=== PATIENT | female | born 1930 | race Caucasian/White ===

== ENCOUNTER 2016-04-01 14:51 | Inpatient (IN) | payer OTHER, BC ==
[2016-04-01] MEDS ORDERED: ONDANSETRON 4 MG/2 ML VIAL IVP PRN (17:03)
[2016-04-01] MEDS ORDERED: ONDANSETRON DISINTEGRATING 4 MG TAB PO PRN (17:03)
[2016-04-01] MEDS ORDERED: ACETAMINOPHEN 325 MG TAB PO PRN (17:03)
--- NOTE | 2016-04-01 17:49 | GHP ---
[f rep st] HISTORY AND PHYSICAL DATE OF ADMISSION: 04/01/2016 HISTORY OF PRESENT ILLNESS: The patient is an 85-year-old female with a history of remote pulmonary embolism, hypertension and functional debility, saw her primary care physician for a regularly schedu le appointment where she noted 2 weeks of shortness of breath. It sounds like at baseline, the patie nt is wheelchair bound but is able to stand and do some ADLs. She denies cough, sputum, fever, chill s, chest pain, PND, orthopnea or lower extremity edema. She does have pretty significant thoracic ca ge abnormality with significant kyphosis. Her last serum bicarb 6 months ago was 28. She has never been a smoker. She had a pulmonary embolism about 7 years ago and remains on anticoagulation. Her l ast INR was 2.8 on the 6th of this month. REVIEW OF SYSTEMS: Complete 10-point review of systems conducted, negative except as noted in the HP I. PAST MEDICAL HISTORY: 1. Glucose intolerance with a hemoglobin A1c of 6.6 in August of 2015. 2. Pulmonary embolism with fairly significant clot burden in 2008, remains on anticoagulation. 3. History of acute coronary syndrome in the setting pulmonary embolism without angiogram. 4. Pulmonary embolism status post lytics. 5. Hypertension. 6. Hypothyroidism. SOCIAL HISTORY: She lives in [place] in senior housing. Her provides a lot of her care. Nonsmoker, minimal alcohol. FAMILY HISTORY: Parents . PHYSICAL EXAM: VITAL SIGNS: Presents with temp 36.8, blood pressure 114/48, pulse 61, breathing 20 times a minute, 98 on 2 L. GENERAL: No acute distress. HEENT: Sclerae anicteric. Oropharynx yani r. Mucous membranes moist. NECK: Supple. No lymphadenopathy or JVD. LUNGS: Shows crackles at th e left base. She has significant pectus carinatum and kyphosis. There is no wheeze. There is moder ate air movement. HEART: S1, S2 without systolic murmur. ABDOMEN: Soft, nontender, nondistended. LOWER EXTREMITIES: No edema. Calves nontender. SKIN: Without rash. NEUROLOGIC: Nonfocal. LABS: None. IMAGING: None. ASSESSMENT/PLAN: An 85-year-old female with pretty significant debility presents with shortness of b reath. 1. Shortness of breath. Differential includes pneumonia, acute coronary syndrome, recurrent pulmona ry embolism versus progressive restrictive lung disease from her thoracic cage. I have ordered a na st x-ray, EKG, troponin and INR. If her INR is therapeutic we will not workup for pulmonary embolism . I suspect she may have a pneumonia based on her presentation. I have also ordered a CBC. 2. Pulmonary embolism. 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 3. History of diabetes. She is on metformin. We will hold this during her hospitalization. We isa l follow her blood sugars. 4. Functional status. Physical therapy, occupational therapy and speech language will see her. 5. Prophylaxis. Pharmacologic prophylaxis indicated. Await her INR before decisions for that. 6. Dyspnea. Addendum, differential also includes anemia given the patient's anticoagulation await t he CBC. 7. Hypoxia. This is mild, likely secondary to hypoventilation from her thoracic cage abnormality. Will follow. 8. Disposition. Inpatient status. /[id number]/MODL
--- NOTE | 2016-04-01 17:50 | CPEKG ---
Heart Rate: 57 RR Interval: 1053 P-R Interval: 136 QRSD Interval: 102 QT Interval: 456 QTC Interval: 444 P Blair: 45 QRS Blair: -1 T Wave Blair: -20 EKG Severity - NORMAL ECG - EKG Impression: SINUS RHYTHM Electronically Signed By: Amando Castro 02-Apr-2016 19:24:29
--- NOTE | 2016-04-01 18:22 | DX ---
PA and lateral chest. April 01, 2016. Clinical History: Dyspnea. Comparison Study: None available. Findings: Elevated left hemidiaphragm. Atelectasis or scar right lower lobe. Cardiac silhouette is no rmal. No acute pneumonia or pleural effusion.. Impression: No acute cardiopulmonary process. Markedly elevated left hemidiaphragm..
[2016-04-01 18:38] LABS: % IMMATURE GRANULYOCYTES 0.2 % (0.0-1.1); ABSOLUTE IMMATURE GRANULOCYTES 0.01 10^3/uL (0.00-0.10); ADD DIFF? NO; ADD MORPH? NO; ADD SCAN? NO; ATYPICAL LYMPHOCYTE FLAG 20 (0-99); FRAGMENT RBC FLAG 40 (0-99); HEMATOCRIT 28.2 % (38.0-47.0); HEMOGLOBIN 8.3 g/dL (12.6-16.3); LEFT SHIFT FLG 0 (0-99); LIPEMIA HEMOLYSIS FLAG 70 (0-99); MEAN CELL HEMOGLOBIN 23.4 pg (27.9-34.1); MEAN CELL HEMOGLOBIN CONCENTR. 29.4 g/dL (32.4-36.7); MEAN CELL VOLUME 79.7 fL (81.5-99.8); MEAN PLATELET VOLUME 10.7 fL (8.7-11.7); PLATELET CLUMPS FLAG 0 (0-99); PLATELET COUNT 328 10^3/uL (150-400); RED BLOOD CELL COUNT 3.54 10^6/uL (4.18-5.33); RED CELL DISTRIBUTION WIDTH 19.6 % (11.5-15.2)
[2016-04-01 18:51] LABS: INR 1.96 (0.83-1.16); PROTIME(PATIENT) 22.4 SEC (12.0-15.0)
[2016-04-01 19:03] LABS: ANION GAP 7 mEq/L (8-16); CALCIUM 8.3 mg/dL (8.5-10.4); CARBON DIOXIDE 27 mEq/l (22-31); CHLORIDE 107 mEq/L (97-110); CREATININE 0.5 mg/dL (0.6-1.0); GLOMERULAR FILTRATION RATE > 60; GLUCOSE 90 mg/dL (70-100); POTASSIUM 4.4 mEq/L (3.5-5.2); SODIUM 141 mEq/L (134-144)
[2016-04-01 19:15] LABS: TROPONIN I < 0.012 ng/mL (0-0.034)
[2016-04-01] MEDS: WARFARIN SODIUM 2.5 MG TAB PO SCH (20:20)
[2016-04-01] MEDS: POLYETHYLENE GLYCOL 3350 17 GM PKT PO SCH (20:20)
[2016-04-02 05:34] LABS: % IMMATURE GRANULYOCYTES 0.2 % (0.0-1.1); ABSOLUTE IMMATURE GRANULOCYTES 0.01 10^3/uL (0.00-0.10); ADD DIFF? NO; ADD MORPH? YES; ADD SCAN? NO; ATYPICAL LYMPHOCYTE FLAG 20 (0-99); FRAGMENT RBC FLAG 40 (0-99); HEMATOCRIT 25.5 % (38.0-47.0); HEMOGLOBIN 7.8 g/dL (12.6-16.3); LEFT SHIFT FLG 0 (0-99); LIPEMIA HEMOLYSIS FLAG 80 (0-99); MEAN CELL HEMOGLOBIN 25.3 pg (27.9-34.1); MEAN CELL HEMOGLOBIN CONCENTR. 30.6 g/dL (32.4-36.7); MEAN CELL VOLUME 82.8 fL (81.5-99.8); MEAN PLATELET VOLUME 10.9 fL (8.7-11.7); PLATELET CLUMPS FLAG 0 (0-99); PLATELET COUNT 292 10^3/uL (150-400); RED BLOOD CELL COUNT 3.08 10^6/uL (4.18-5.33)
[2016-04-02 05:37] LABS: RED CELL DISTRIBUTION WIDTH 21.4 % (11.5-15.2)
[2016-04-02 05:51] LABS: INR 1.99 (0.83-1.16); PROTIME(PATIENT) 22.7 SEC (12.0-15.0)
[2016-04-02 05:58] LABS: HYPOCHROMIA 1+; MICROCYTES 1+; PLATELET ESTIMATE ADEQUATE (ADEQ)
[2016-04-02] MEDS: LEVOTHYROXINE 75 MCG TAB PO SCH (07:13)
[2016-04-02] MEDS: MULTIVITAMINS 1 EACH TAB PO SCH ×2 (09:31→12:11)
[2016-04-02] MEDS: POLYETHYLENE GLYCOL 3350 17 GM PKT PO SCH (09:31)
[2016-04-02] MEDS: ATENOLOL 25 MG TAB PO SCH (09:32)
[2016-04-02] MEDS: CYANO/VITAMIN B12 1000 MCG TAB PO SCH (09:32)
[2016-04-02] MEDS: ASPIRIN EC 81 MG TAB PO SCH (09:32)
[2016-04-02] MEDS: GLUCOSAMINE/CHONDROITIN CAP PO SCH ×2 (09:32→21:03)
[2016-04-02] MEDS: CHOLECALCIFEROL VIT D3 1,000 UNITS TAB PO SCH (09:32)
[2016-04-02] MEDS: CALCIUM CARB W/VIT D 500 MG TAB PO SCH ×2 (09:33→12:10)
--- NOTE | 2016-04-02 16:34 | HOSPPROG ---
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 CXR personally reviewed w/o infiltrate or effusion. Does have significant kyphosis and likely restrictive lung disease as a result. Hx of PE and INR slightly subtherapeutic on arrival, will get CTA to r/o PE # hx of PE: hx of massive PE requiring TPA and plan at that point was for lifelong AC, she has not had issues with bleeding or falls, will continue AC and await cta. INR slightly low, will bridge with lovenox if PE present # hx of CVA with residual right sided weakness: patient reports that the weakness is a bit worse recently, however at baseline she is essentially wheelchair bound. PT/OT involved. Does not sound as if there is any clear new neurologic sxs, continued right sided weakness only, will hold off on imaging # acute on chronic anemia: with baseline hct of 30 and today decreased to 25, no e/o bleeding, will monitor # DM: patient reports being due for A1c, will order for am, last A1c was 6.6 # htn: continue atenolol # dispo: IP status, will need > 48 hours stay given multiple active comorbid conditions # patient new to my care. Old records reviewed and summarized as above. Care plan reviewed with CM> Subjective: no significant overnight evetns, patient continues to feel sob if oxygen is off, she also feels more weak than usual mostly on the right side which is where her usual weakness is Objective: Vital Signs Temp Pulse Resp BP Pulse Ox 36.8 C 62 18 102/52 L 94 04/02/16 16:16 04/02/16 16:16 04/02/16 16:16 04/02/16 16:16 04/02/16 16:16 Laboratory Results 04/02/16 03:41 04/01/16 18:30 04/01/16 04/02/16 04/03/16 05:59 05:59 05:59 Intake Total 500 Balance 500 PT 22.7 SEC (12.0-15.0) H 04/02/16 03:41 INR 1.99 (0.83-1.16) H 04/02/16 03:41 awake alert anicteric op clear rrr systolic murmur dec bs throughout soft nt nd no cce warm dry well perfused oriented appropriate right upper and lower extremity weakness - Time Spent With Patient Time Spent with Patient: greater than 35 minutes Time Spent with Patient: Greater than 35 minutes spent on this patients care, greater than 50% of time spent counseling, educating, and coordinating care regarding the above mentioned plan. ICD10 Worksheet Patient Problems: Problems Problem Status Diagnosed Pulmonary embolism Acute
[2016-04-02 16:40] LABS: COLOR YELLOW; LEUKOCYTE ESTERASE,URINE 1+ (NEGATIVE); NITRITE,URINE NEGATIVE (NEGATIVE)
[2016-04-02 17:28] LABS: BACTERIA TRACE /hpf (NONE SEEN); MUCUS TRACE /lpf (NONE-1+)
[2016-04-02] MEDS ORDERED: IOPAMIDOL (ISOVUE 370) 100 ML BTL IV ONE (17:28)
[2016-04-02] MEDS ORDERED: WARFARIN SODIUM 5 MG TAB PO SCH (19:05)
--- NOTE | 2016-04-02 20:12 | CT ---
CT Pulmonary Angiogram Clinical Indications: Shortness of breath and hypoxia in an 85 year old with a remote history of pu lmonary embolic disease documented on CT pulmonary angiography of December 03, 2008. Technique: Thinly collimated multidetector helical CT imaging was performed through the chest while 85 mL of Isovue-370 were injected intravenously without complication. The images were obtained at 4- mm thickness and reconstructed at 1.5-mm thickness. Sagittal and coronal reconstructions were perfor med. The examination is reviewed on the workstation by the interpreting physician at multiple window /level settings. Dose reduction techniques were utilized. Findings Chest: There is marked elevation of the left hemidiaphragm. Bilateral pleural effusions are noted, larger on the left side. There is bilateral lower lung opacity, atelectasis versus less likely pneum onia. Scoliosis and spinal degenerative changes are noted. The heart is enlarged. The upper abdomen is negative for acute abnormality. CT Pulmonary Angiogram: The pulmonary arterial system is well opacified. No intraluminal filling d efects are seen to suggest acute or chronic pulmonary embolic disease. The main pulmonary artery is dilated, measuring 3 cm in transverse dimension, raising the possibility of pulmonary arterial hypert ension. No vascular malformations are seen. The thoracic aorta has a normal contour, without eviden ce of aneurysm or dissection. Impressions 1. No evidence of pulmonary embolic disease. 2. Prominent elevation of the left hemidiaphragm. 3. Basilar consolidation bilaterally, atelectasis versus pneumonia. 4. Query pulmonary arterial hypertension. 5. See above report for additional findings.
[2016-04-03] MEDS: LEVOTHYROXINE 75 MCG TAB PO SCH (04:31)
[2016-04-03 05:09] LABS: % IMMATURE GRANULYOCYTES 0.4 % (0.0-1.1); ABSOLUTE IMMATURE GRANULOCYTES 0.02 10^3/uL (0.00-0.10); ADD DIFF? NO; ADD SCAN? NO; ANION GAP 3 mEq/L (8-16); ATYPICAL LYMPHOCYTE FLAG 0 (0-99); CALCIUM 8.2 mg/dL (8.5-10.4); CARBON DIOXIDE 29 mEq/l (22-31); CHLORIDE 107 mEq/L (97-110); CREATININE 0.6 mg/dL (0.6-1.0); FRAGMENT RBC FLAG 40 (0-99); GLOMERULAR FILTRATION RATE > 60; GLUCOSE 83 mg/dL (70-100); HEMATOCRIT 26.1 % (38.0-47.0); HEMOGLOBIN 7.8 g/dL (12.6-16.3); LEFT SHIFT FLG 0 (0-99); LIPEMIA HEMOLYSIS FLAG 70 (0-99); MEAN CELL HEMOGLOBIN 23.9 pg (27.9-34.1); MEAN CELL HEMOGLOBIN CONCENTR. 29.9 g/dL (32.4-36.7); MEAN CELL VOLUME 79.8 fL (81.5-99.8); MEAN PLATELET VOLUME 11.3 fL (8.7-11.7); PLATELET CLUMPS FLAG 10 (0-99); PLATELET COUNT 299 10^3/uL (150-400); POTASSIUM 4.3 mEq/L (3.5-5.2); RED BLOOD CELL COUNT 3.27 10^6/uL (4.18-5.33); SODIUM 139 mEq/L (134-144)
[2016-04-03 05:12] LABS: ADD MORPH? YES; RED CELL DISTRIBUTION WIDTH 20.2 % (11.5-15.2)
[2016-04-03 06:18] LABS: HYPOCHROMIA 1+; MICROCYTES 1+; PLATELET ESTIMATE ADEQUATE (ADEQ)
[2016-04-03 06:19] LABS: POLYCHROMASIA 1+
[2016-04-03] MEDS: POLYETHYLENE GLYCOL 3350 17 GM PKT PO SCH (09:05)
[2016-04-03] MEDS: ATENOLOL 25 MG TAB PO SCH (09:07)
[2016-04-03] MEDS: ASPIRIN EC 81 MG TAB PO SCH (09:07)
[2016-04-03] MEDS: GLUCOSAMINE/CHONDROITIN CAP PO SCH ×2 (09:07→20:34)
[2016-04-03] MEDS: CYANO/VITAMIN B12 1000 MCG TAB PO SCH (09:07)
[2016-04-03] MEDS: CHOLECALCIFEROL VIT D3 1,000 UNITS TAB PO SCH (09:08)
[2016-04-03 10:50] LABS: HEMOGLOBIN A1C 6.9 % (4.0-6.0)
[2016-04-03] MEDS: MULTIVITAMINS 1 EACH TAB PO SCH (14:05)
[2016-04-03] MEDS: CALCIUM CARB W/VIT D 500 MG TAB PO SCH (14:05)
--- NOTE | 2016-04-03 15:32 | ECHO ---
[id number] + + [address] : : [place] [address] : : [phone] + + Adult Echocardiographic Report + -+ :Name: PAOLA BUSTILLOS DStudy Date: 04/03/2016 11:12 AM : : Hospital Admission Number: [id number] : :: 1930 Gender: Female Height: 58 in : :Age: 85 yrs Race: WH Weight: 95 lb : :Reason For Study: Hx of PE, e/o PAH on echo, hypoxic : : BSA: 1.3 meters 2: + -+ MMode/2D Measurements & Calculations IVSd: 0.82 cm RVDd: 3.0 cm FS: 24.8 % LVOT diam: 1.7 cm LVPWd: 0.96 cm LVIDd: 3.2 cm EDV(Teich): LVOT area: LVIDs: 2.4 cm 40.5 ml 2.2 cm2 ESV(Teich): 20.1 ml EF(Teich): 50.5 % LVLd ap4: 5.2 cm SV(MOD-sp4): EDV(MOD-sp4): 36.0 ml 48.0 ml LVLs ap4: 4.0 cm ESV(MOD-sp4): 12.0 ml EF(MOD-sp4): 75.0 % Normal Measurement Values: + + :LVIDd (3.5-5.7cm) IVSd (0.6-1.1cm) LVPWd (0.6-1.1cm) Aortic Root (2.0-3.7cm)Left Atrium (1.5-4.0cm): :LV Vol(d) (76-115ml) LV Vol(s) (29-48ml) Ejec Fraction (50-65%)PV Abiel (0.6- 1.2m/s) TV Abiel (0.4-1.0m/s) : :MV E Abiel (0.8-1.0m/s)MV A Abiel (0.3-1.0m/s)LVOT Abiel (0.7-1.2m/s) Asc Ao Abiel ( 0.9-1.8m/s) : + + Doppler Measurements & Calculations MV E max abiel: MV V2 mean: Ao V2 max: AI max abiel: 123.4 cm/sec 68.8 cm/sec 162.9 cm/sec 251.2 cm/sec MV A max abiel: MV mean PG: Ao max PG: AI max P.3 mmHg 95.8 cm/sec 2.2 mmHg 10.6 mmHg AI dec slope: MV E/A: 1.3 MV V2 VTI: Ao mean P.2 cm/sec2 MV dec time: 42.8 cm 4.5 mmHg AI P1/2t: 517.3 msec 0.21 sec MVA(VTI): 1.1 cm2Ao V2 mean: 100.9 cm/sec Ao V2 VTI: 33.4 cm LAUREN(I,D): 1.4 cm2 LAUREN(V,D): 1.3 cm2 LV V1 max: SV(LVOT): 45.7 mlPA V2 max: TR max abiel: 96.3 cm/sec 113.3 cm/sec 295.6 cm/sec LV V1 max PG: PA max PG: TR max P.0 mmHg 3.7 mmHg 5.1 mmHg LV V1 mean P.6 mmHg LV V1 mean: 58.2 cm/sec LV V1 VTI: 21.1 cm Left Ventricle The left ventricle is normal in size and function. There is normal left ventricular wall thickness. Ejection Fraction = 65%. There is Doppler evidence for diastolic dysfunction. No regional wall motion abnormalities noted. Right Ventricle The right ventricle is normal in size and function. Atria The left atrial size is normal. Right atrial size is normal. Mitral Valve There is mild to moderate mitral annular calcification. There is no mitral valve stenosis. There is trace to mild mitral regurgitation. Tricuspid Valve The tricuspid valve is normal in structure and function. There is no tricuspid stenosis. There is moderate tricuspid regurgitation. Right ventricular systolic pressure is 45mmHg. There is Doppler evidence for mild pulmonary hypertension. Aortic Valve The aortic valve is trileaflet. Mild-Moderate Aortic Valve Calcification. There is no aortic stenosis. Mild to moderate aortic regurgitation. Pulmonic Valve The pulmonic valve is normal in structure and function. There is no pulmonic valvular stenosis. Trace pulmonic valvular regurgitation. Great Vessels The aortic root is normal size. Pericardium/Pleural There is no pericardial effusion. There is a fat pad seen. Conclusion A complete two-dimensional transthoracic echocardiogram was performed (2D, M-mode, Doppler and color flow Doppler). The study was technically difficult. The left ventricle is normal in size and function. Ejection Fraction = 65%. There is Doppler evidence for diastolic dysfunction. Normal right ventricular size and systolic function There is mild to moderate mitral annular calcification. There is trace to mild mitral regurgitation. There is moderate tricuspid regurgitation. Right ventricular systolic pressure is 45mmHg. There is Doppler evidence for mild pulmonary hypertension. The aortic valve is trileaflet. Mild-Moderate Aortic Valve Calcification Mild to moderate aortic regurgitation. There is no aortic stenosis. No prior echo Final Reading Physician: Dr Darling Marie electronically signed on 04/03/2016 03:30 PM Ordering Physician: Ginny Cantu Performed By: Alysha Kinney
--- NOTE | 2016-04-03 16:01 | HOSPPROG ---
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 cxr and CTA personally reviewed without e/o pna or PE. May be a subacute decline in resp status due to her kyphosis and restrictive lung disease. continue supp o2. Echo relatively unremarkable other than mild vhd and pulm htn. # uti: generalized weakness may be due to UTI with urine culture showing >100k GNR, will start ctx pending final s/s. # hx of PE: hx of massive PE requiring TPA, continue coumadin, will recheck INR # hx of CVA with residual right sided weakness: patient reports that the weakness is a bit worse recently likely related to her UTI and unmasking of prior cva sxs. # acute on chronic anemia: with baseline hct of 30 currently slightly lower than baseline, she reports having dark stools sometimes, but has declined endoscopy or colonoscopy in the past due to her age. Will add PPI for possible occult GI bleed, continue iron. # DM:a1c of 6.9, continue # htn: continue atenolol # dispo: IP status, will need > 48 hours stay given multiple active comorbid conditions # Care plan reviewed with patients niece present at bedside Subjective: no significant overnight events, patient currently feeling a bit better than yesterday, still sob with o2 off Objective: Vital Signs Temp Pulse Resp BP Pulse Ox 36.6 C 68 21 H 116/50 L 94 04/03/16 15:30 04/03/16 15:30 04/03/16 15:30 04/03/16 15:30 04/03/16 15:30 Laboratory Results 04/03/16 03:36 04/03/16 03:36 04/02/16 04/03/16 04/04/16 05:59 05:59 05:59 Intake Total 500 758 480 Output Total 222 Balance 500 536 480 PT 22.7 SEC (12.0-15.0) H 04/02/16 03:41 INR 1.99 (0.83-1.16) H 04/02/16 03:41 awake alert anicteric op clear rrr systolic murmur dec bs throughout soft nt nd no cce warm dry well perfused oriented appropriate right upper and lower extremity weakness - Time Spent With Patient Time Spent with Patient: greater than 35 minutes Time Spent with Patient: Greater than 35 minutes spent on this patients care, greater than 50% of time spent counseling, educating, and coordinating care regarding the above mentioned plan. ICD10 Worksheet Patient Problems: Problems Problem Status Diagnosed Pulmonary embolism Acute
[2016-04-03] MEDS ORDERED: BISACODYL 10 MG SUPP PR PRN (16:03)
[2016-04-03] MEDS ORDERED: LACTULOSE 20 GM/30 ML UDCUP PO PRN (16:03)
[2016-04-03] MEDS ORDERED: MAGNESIUM HYDROXIDE 30 ML UDCUP PO PRN (16:03)
[2016-04-03] MEDS ORDERED: POLYETHYLENE GLYCOL 3350 17 GM PKT PO PRN (16:03)
[2016-04-03] MEDS: SENNOSIDES/DOCUSATE SODIUM TAB PO SCH (20:34)
[2016-04-03] MEDS: WARFARIN SODIUM 2.5 MG TAB PO SCH (20:34)
[2016-04-03] MEDS: IRON POLYSAC/IRON HEME 28 MG TAB PO SCH (20:34)
[2016-04-04 05:03] LABS: INR 1.94 (0.83-1.16); PROTIME(PATIENT) 22.3 SEC (12.0-15.0)
[2016-04-04] MEDS: LEVOTHYROXINE 75 MCG TAB PO SCH (07:11)
[2016-04-04 08:17] VITALS: BP 129/61; PULSE 72; RESP 14; TEMP 97.9
[2016-04-04] MEDS ORDERED: PANTOPRAZOLE SODIUM 40 MG TAB PO SCH (09:00)
--- NOTE | 2016-04-04 09:21 | PDDCSUM ---
Discharge Summary Discharge Summary: Dates of service: 04/01-04/04/16 Procedures performed: CTA of the chest, echocardiogram Consultations: none Hospital course by problem: # acute hypoxic respiratory failure: w/u including CTA, CXR and echo showing nothing acute. Patient with significant kyphosis and likely underlying restrictive lung disease, mild pulm htn suggestive of more subacute process. Will dc on supplemental o2, suspect she will need for life. # uti: generalized weakness may be due to UTI with urine culture showing >100k GNR, started on ctx in house, dc on levaquin with final cultures pending. Discussed that this may affect her INR, currently INR slightly low, will be checked again in 2 days. # hx of PE: hx of massive PE requiring TPA, continue coumadin, INR borderline subtherapeutic as above # hx of CVA with residual right sided weakness: initially slightly worse than usual, ? related to UTI, she is now back to her baseline, uses a wheelchair at baseline # acute on chronic anemia: continued on supplemental iron, reports dark stools - -iron vs occult gi bleed. Started on PPI given dark stools and chronic asa/ warfarin use. Declines endoscopy given her age. No indication for transfusion. # DM:a1c of 6.9, continue monitoring, diet controlled # htn: continue atenolol Dispo: dc home with home health > 35 minutes spent in discharge, more than half in face to face care and counseling of patient Meds: see EHR, notably addition of levofloxacin for 5 days f/u with PCP Pending at dc: urine culture sensitivity/speciation
--- NOTE | 2016-04-04 09:26 | PDIAF ---
- Diagnosis Code Status: Full Code - Medication Management Discharge Medications: Medications to Continue on Transfer Atenolol [Tenormin 25 mg (*)] 25 mg PO DAILY 11/21/10 [Last Taken 04/01/16] Levothyroxine [Synthroid 75 mcg (*)] 75 mcg PO DAILY 11/21/10 [Last Taken ] Aspirin EC [Aspirin EC 81 mg (*)] 81 mg PO DAILY 04/01/16 [Last Taken 04/01/16] Calcium Carbonate/Vitamin D3 [CALCIUM 600 + VIT D TABLET] 1 each PO DAILY [Last Taken Unknown] Cholecalciferol Vit D3 [Vitamin D3 (*)] 1,000 units PO DAILY 04/01/16 [Last Taken Unknown] Cyanocobalamin [Vitamin B12 (*)] 1,000 mcg PO DAILY 04/01/16 [Last Taken Unknown ] Denosumab [Prolia] 60 mg SQ Q180D 04/01/16 [Last Taken Unknown] Gluc 2Kcl/Chondr/Kalyan Hy/Hy AC [Glucosamine & Chondroitin Cap] 1 each PO BID [Last Taken Unknown] Multivitamins [Multivitamin (*)] 1 each PO DAILY 04/01/16 [Last Taken Unknown] Warfarin Sodium [Coumadin 2.5MG (*)] 2.5 mg PO [id number] 04/01/16 [Last Taken 03/31/16] Warfarin Sodium [Coumadin 5MG (*)] 5 mg PO MOTH 04/01/16 [Last Taken Unknown] Acetaminophen [Tylenol 325mg (*)] 650 mg PO Q4HRS PRN #0 tab 04/04/16 [Last Taken Unknown] Ferrous Gluconate 324 mg PO DAILY #30 tablet 04/04/16 [Last Taken Unknown] Pantoprazole Sodium [Protonix 40mg (*)] 40 mg PO DAILY #30 tab 04/04/16 [Last Taken Unknown] Polyethylene Glycol 3350 [Miralax 17 gm (*)] 17 gm PO DAILY #0 pkt 04/04/16 [ Last Taken Unknown] Sennosides/Docusate Sodium [Senokot-S] 1 - 2 tab PO BID #0 tab 04/04/16 [Last Taken Unknown] levOFLOXACIN [Levofloxacin] 750 mg PO DAILY #5 tablet 01/28/17 [Last Taken Unknown] Discharge Medications: Refer to the Discharge Home Medication list for PRN reason. - Orders Services needed: Home Care, Physical Therapy, Occupational Therapy Home Care Face to Face: I certify that this patient was under my care and that I had the required [id number] encounter meeting the encounter requirements on the discharge day. My findings support the fact that the patient is homebound as defined in CMS Chapter 7 Medicare Benefits Manual 30.1.1, The condition of the patient is such that there exists a normal inability to leave home and consequently, leaving home would require a considerable and taxing effort. Diet Texture: Regular Texture Diet, Thin Liquids, Meds Whole w/Liquids - Labs/Radiology CBC Date: 04/06/16 PT/INR Date: 04/06/16 Call or Fax Lab and Imaging Results to: Dahiana Appiah - Follow Up Care Current Providers and Referrals: Dahiana Appiah MD [Primary Care Provider] -
[2016-04-04] MEDS: SENNOSIDES/DOCUSATE SODIUM TAB PO SCH (09:51)
[2016-04-04] MEDS: CYANO/VITAMIN B12 1000 MCG TAB PO SCH (09:51)
[2016-04-04] MEDS: ATENOLOL 25 MG TAB PO SCH (09:51)
[2016-04-04] MEDS: ASPIRIN EC 81 MG TAB PO SCH (09:51)
[2016-04-04] MEDS: IRON POLYSAC/IRON HEME 28 MG TAB PO SCH (09:51)
[2016-04-04] MEDS: GLUCOSAMINE/CHONDROITIN CAP PO SCH (09:51)
[2016-04-04] MEDS: POLYETHYLENE GLYCOL 3350 17 GM PKT PO SCH (09:52)
[2016-04-04] MEDS: CHOLECALCIFEROL VIT D3 1,000 UNITS TAB PO SCH (09:52)
[2016-04-04 11:48] VITALS: O2SAT 84
[2016-04-04] MEDS: MULTIVITAMINS 1 EACH TAB PO SCH (12:57)
[2016-04-04] MEDS: CALCIUM CARB W/VIT D 500 MG TAB PO SCH (12:57)
== END 2016-04-04 13:12 | disposition home health service (06) | DRG 189 ==
LOC: F2W 15:27
PROVIDERS: ADMIT Internal Medicine; ATTEND Internal Medicine
DX: J96.01 Acute respiratory failure with hypoxia (principal); M40.204 Unspecified kyphosis, thoracic region; J99 Respiratory disorders in diseases classified elsewhere; N39.0 Urinary tract infection, site not specified; B96.20 Unspecified Escherichia coli [E. coli] as the cause of diseases classified elsewhere; D50.9 Iron deficiency anemia, unspecified; I69.351 Hemiplegia and hemiparesis following cerebral infarction affecting right dominant side; E11.9 Type 2 diabetes mellitus without complications; I10 Essential (primary) hypertension; E03.9 Hypothyroidism, unspecified; Z86.711 Personal history of pulmonary embolism; Z79.01 Long term (current) use of anticoagulants
CPT/HCPCS: 92526-GN; 92610-GN; 97161-GP; 97165-GO; 97535-GO; G8978-GP-CI; G8979-GP-CI; G8987-GO-CK; G8988-GO-CJ; G8996-GN-CI; G8997-GN-CI; G8998-GN-CI; J0696; Q9967